=== PATIENT | female | born 1985 | race Caucasian/White ===

== ENCOUNTER 2021-09-21 13:19 | Emergency (ER) | payer OTHER, SELFPAY ==
--- NOTE | ~2021-09-21 | XR_ITS ---
EXAMINATION: XR chest 2V 09/21/2021 13:38 INDICATION: Left chest pain PROCEDURE: 2 view chest COMPARISON: No prior studies for comparison. FINDINGS: The lungs are clear. The cardiomediastinal silhouette is within normal limits. There are no pleural effusions. There is no pneumothorax suspected. IMPRESSION: 1: NO ACUTE CARDIOPULMONARY DISEASE. Reviewed, dictated and finalized at location A.
[2021-09-21 13:21] VITALS: BP 138/104; PULSE 120; RESP 16; TEMP 36.7; O2SAT 98
--- NOTE | 2021-09-21 13:27 | ECG_ITS ---
Measurements Intervals [place] Rate: 117 P: 20 AL: 129 QRS: 30 QRSD: 84 T: 31 QT: 314 QTc: 438 Interpretive Statements SINUS TACHYCARDIA OTHERWISE NORMAL ECG NO PREVIOUS ECG AVAILABLE FOR COMPARISON Electronically Signed On 09-21-2021 14:51:44 CDT by Rio Rocha M.D.
[2021-09-21 13:53] LABS: Basophils Absolute Auto 0.1 K/mm3 (0.0-0.1); Basophils Percent Auto 0.6 % (0.2-1.2); Eosinophils Absolute Auto 0.2 K/mm3 (0-0.3); Eosinophils Percent Auto 1.6 % (0-4.4); Hematocrit 44.5 % (37.0-47.0); Hemoglobin 14.5 g/dL (12.0-15.0); Immature Granulocyte Absolute 0.05 K/mm3 (0.00-0.031); Immature Granulocyte Percent A 0.5 % (0-0.5); Lymphocytes Absolute Auto 3.86 K/mm3 (0.9-3.2); Lymphocytes Percent Auto 35.4 % (18.3-44.2); Mean Corpuscular HGB Conc 32.6 g/dl (32-36); Mean Corpuscular Hemoglobin 29.1 pg (26-34); Mean Corpuscular Volume 89.4 fl (80-100); Mean Platelet Volume 10.1 fl (7.4-10.4); Monocytes Absolute Auto 0.8 K/mm3 (0.1-0.6); Neutrophils Percent Auto 54.9 % (45.5-73.1); Platelet Count Result 314 k/mm3 (150-375); Red Blood Count 4.98 M/mm3 (4.2-5.4); Red Cell Distribution Width 12.8 % (11.5-14.5); White Blood Count 10.9 K/mm3 (4.5-10.0)
[2021-09-21 14:02] LABS: Alanine Aminotransferase 32 U/L (4-35); Albumin Level 4.6 g/dL (3.5-5.1); Alkaline Phosphatase 85 U/L (38-126); Anion Gap 8 mmol/L (8-16); Aspartate Amino Transferase 28 U/L (14-36); Bilirubin,Total 0.3 mg/dL (0.2-1.3); Blood Urea Nitrogen 13 mg/dL (7-17); Carbon Dioxide 26 mmol/L (22-30); Chloride 105 mmol/L (98-107); Estimated CRCL calculation 104 ml/min; Estimated Glomerular Filt Rate > 60; Glucose 111 mg/dL (65-110); Lipase 55 U/L (23-300); Potassium 3.7 mmol/L (3.4-5.0); Prothrombin Time 12.3 Seconds (11.1-14.7); Sodium 139 mmol/L (137-145)
[2021-09-21 14:03] LABS: Partial Thromboplastin Time 27.9 SECONDS (22.3-36.8)
[2021-09-21 14:11] LABS: D Dimer 0.27 ug/mL (<0.48)
[2021-09-21 14:13] LABS: Troponin I < 0.012 ng/mL (0.000-0.034)
--- NOTE | 2021-09-21 14:24 | ED.CHESTPAIN ---
HPI - Chest Pain General Chief Complaint: Chest Pain Stated Complaint: CHEST PAIN Time Seen by Provider: 09/21/21 13:46 Source: patient and RN notes reviewed Mode of arrival: ambulatory Limitations: no limitations History of Present Illness HPI narrative: Patient is 36 years old white female came to the emergency room because of sudden onset of left neck pain while driving, followed by tingling numbness of the chest and left upper extremity and left chest tightness, resolved on arrival to the emergency room. The symptom has been off and on since. Currently patient is asymptomatic. Patient drove herself immediately to the emergency room after the beginning of the symptoms. Patient denies any fever, chills, nausea, vomiting, shortness of breath, headache, back pain or abdominal pain. Patient denies radiation of pain. Anxious patient is healthy, does not take medicine at home, does not smoke or drink or uses drugs. Related Data Home Medications Medication Instructions Recorded Confirmed No Home Medications 09/21/21 09/21/21 Allergies Allergy/AdvReac Type Severity Reaction Status Date / Time No Known Allergies Allergy Verified 09/21/21 13:30 Review of Systems Review of Systems: CONSTITUTIONAL: Denies fever, chills, or sweats. EYES: Denies visual changes, redness, or discharge. ENT: Denies rhinorrhea, congestion, sore throat, or otalgia. CARDIOVASCULAR: Denies chest pain, palpitations, or edema. RESPIRATORY: Denies cough or dyspnea. GASTROINTESTINAL: Denies abdominal pain, nausea, vomiting, or diarrhea. GENITOURINARY: Denies dysuria or hematuria. SKIN: Denies rash or itching. MUSCULOSKELETAL: Denies back pain, joint pain, or myalgia. NEUROLOGIC: Denies headache, numbness, or weakness. PSYCHIATRIC: Denies anxiety or depression. Exam Narrative: General appearance: Well-developed, well-nourished Skin: Normal color Head: Normocephalic, nontraumatic Eyes: Clear conjunctiva ENT: Oropharynx normal, ears normal, nose normal Neck: Supple, nontender Chest and respiratory: Airway patent, no respiratory distress, no accessory muscle use Heart: Regular rate/rhythm Abdomen: Soft, nontender, no organomegaly, quiet bowel sounds Vascular: Normal peripheral pulses, normal capillary refill. Musculoskeletal: Normal range of motion, nontender back Neurologic: Alert and oriented ?3, [employer] is normal as tested, no gross motor deficit Course Course Emergency Course: Stable Vital Signs Vital signs: Vital Signs Temperature 36.7 C 09/21/21 13:21 Pulse Rate 120 H 09/21/21 13:21 Respiratory Rate 16 09/21/21 13:21 Blood Pressure 138/104 H 09/21/21 13:21 Pulse Oximetry 98 09/21/21 13:21 Temperature 36.7 C 09/21/21 13:21 Pulse Rate 120 H 09/21/21 13:21 Respiratory Rate 16 09/21/21 13:21 Blood Pressure 138/104 H 09/21/21 13:21 Pulse Oximetry 98 09/21/21 13:21 MDM - Chest Pain MDM Narrative Medical decision making narrative: Sudden onset left neck pain, Differential diagnosis as below Differential Diagnosis Differential diagnosis: Likely pneumothorax, atypical chest pain and other (Anxiety-like symptoms, strain/sprain of the neck, panic attack) Lab Data Result diagrams: 09/21/21 13:46 09/21/21 13:46 Labs: Lab Results 09/21/21 09/21/21 09/21/21 Range/Units 13:46 13:46 13:46 WBC 10.9 H (4.5-10.0) K/mm3 RBC 4.98 (4.2-5.4) M/mm3 Hgb 14.5 (12.0-15.0) g/dL Hct 44.5 (37.0-47.0) % MCV 89.4 (80-100) fl MCH 29.1 (26-34) pg MCHC 32.6 (32-36) g/dl RDW 12.8 (11.5-14.5) % Plt Count 314 (150-375) k/mm3 MPV 10.1 (7.4-10.4) fl Immature Gran % (Auto) 0.5
[2021-09-21 14:57] VITALS: BP 146/102; PULSE 100; RESP 16; O2SAT 98
== END 2021-09-21 14:59 | disposition home or self-care (01) ==
PROVIDERS: Emergency Medicine; Emergency Provider Emergency Medicine
DX: R07.89 Other chest pain (principal); F41.9 Anxiety disorder, unspecified; R00.0 Tachycardia, unspecified
CPT/HCPCS: 36415; 71046; 80053; 83690; 84484; 85025; 85380; 85610; 85730; 93005; 99284